=== PATIENT | male | born 1935 | race Caucasian/White ===

== ENCOUNTER 2020-01-30 06:02 | Inpatient (IN) | payer OTHER, MEDICARE ==
--- NOTE | 2020-01-30 07:14 | EDM.PDOC ---
ED HPI GENERAL MEDICAL PROBLEM - General Chief Complaint: General Stated Complaint: FALL Time Seen by Provider: 01/30/20 06:30 Source of Information: Reports: Patient, Family History Limitations: Reports: No Limitations - History of Present Illness INITIAL COMMENTS - FREE TEXT/NARRATIVE: c/o fall pt states he goes to bathroom 10x/night, had gotten up and fell against nightstand breaking it, has pain in his L ribs and lower back, no KITCHEN or neck pain not on anticoagulation except ASA no LOC uses a walker pt fell 4x in past 24 hr, has been falling at least 1x/wk for past yr, in recent months has been unable to help him up, police and EMS provided lift assist earlier this week h/o alc abuse, still drinks 1-2 beers/day when asked why he is falling, he says "I try to stay in practice" unknown when last saw PCP Dr Fountain, neither pt or remember has RN set up meds q2wk, has DANA Davis come in 2x/wk to help with shower pt too abuse in ~2007 and from his and went "to [place] to live with his daughter" pt was too much for his daughter and returned to live with his 2-3y ago, however has been on a decline in past 2m with inc'd falls pt and think that he needs to be in a senior care says he only shuffles had hip surgery 1m ago last labs in [facility] 5y ago, had a GFR 45 and a E coli UTI then left side rib Pain Score (Numeric/FACES): 6 - Related Data Allergies Allergy/AdvReac Type Severity Reaction Status Date / Time lisinopril AdvReac Mild Cough Verified 01/30/20 08:51 Home Meds: Home Meds Benzoyl Peroxide [Acne Treatment] 1 applic TOP DAILY PRN 05/16/14 [History] Cyanocobalamin (Vitamin B-12) [B-12] 1,000 mcg PO DAILY 05/16/14 [History] Omeprazole [Prilosec] 20 mg PO DAILY 05/16/14 [History] clonazePAM [Klonopin] 1 mg PO BID PRN 05/16/14 [History] Hydrochlorothiazide 12.5 mg PO DAILY tablet 09/15/15 [Rx] Aspirin [Halfprin] 81 mg PO DAILY tab.ec 09/21/15 [Rx] Docusate Sodium 100 mg PO DAILY 12/20/15 [History] Acetaminophen [Tylenol Arthritis] 1,500 mg PO BID 01/30/20 [History] Acetaminophen [Tylenol] 325 mg PO BEDTIME 01/30/20 [History] Metoprolol Succinate [Toprol XL] 25 mg PO DAILY 01/30/20 [History] amLODIPine [Norvasc] 5 mg PO BEDTIME 01/30/20 [History] traZODone 150 mg PO BEDTIME 01/30/20 [History] Past Medical History HEENT History: Reports: Hard of Hearing Cardiovascular History: Reports: High Cholesterol, Hypertension Respiratory History: Reports: SOB Gastrointestinal History: Reports: GERD, Hiatal Hernia Other Gastrointestinal History: PT HASN'T HAD SURGERY YET ON HIATIA HERNIA Genitourinary History: Reports: Other (See Below) Other Genitourinary History: HIS STATED A ENLARGED PROSTATE BUT WASN'T AWARE OF CHRONIC RENAL IMPAIRMENT DIAGNOSIS THAT IS STATED ON H AND P Musculoskeletal History: Reports: Arthritis, Back Pain, Chronic, Fracture Other Musculoskeletal History: SCIATICA Neurological History: Reports: TIA, Other (See Below) Other Neuro History: UNSPECIFIED DEMENTIA Psychiatric History: Reports: Addiction, Other (See Below) Other Psychiatric History: ETOH ABUSE Endocrine/Metabolic History: Reports: None Hematologic History: Reports: None Dermatologic History: Reports: Other (See Below) 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 - Infectious Disease History Infectious Disease History: Reports: Measles, Mumps, Shingles - Past Surgical History Musculoskeletal Surgical History: Reports: Other (See Below) Social & Family History - Family History HEENT: Reports: Cataract, Glaucoma, Impaired Vision, Macular Degeneration - Tobacco Use Smoking Status *Q: Former Smoker Used Tobacco, but Quit: Yes Month/Year Tobacco Last Used: 1989 ED ROS GENERAL - Review of Systems Review Of Systems: See Below Constitutional: Reports: Weakness HEENT: Reports: No Symptoms Respiratory: Reports: No Symptoms Cardiovascular: Reports: No Symptoms Endocrine: Reports: No Symptoms GI/Abdominal: Reports: No Symptoms : Reports: No Symptoms Musculoskeletal: Reports: No Symptoms Skin: Reports: No Symptoms Neurological: Reports: Difficulty Walking, Weakness, Gait Disturbance, Other (freq falls) Psychiatric: Reports: Confusion Hematologic/Lymphatic: Reports: No Symptoms Immunologic: Reports: No Symptoms ED EXAM, GENERAL - Physical Exam Exam: See Below General Appearance: Alert, WD/WN, No Apparent Distress, Other (alert, pleasant, good eye contact, NAD, nonill, knows month and year and day (Sun), knows location and name of hosp, knows his full name, provides accurate hx) Eye Exam: Bilateral Eye: PERRL Ears: Normal External Exam, Hearing Grossly Normal Throat/Mouth: Normal Inspection, Normal Lips, Normal Voice, No Airway Compromise Head: Atraumatic, Normocephalic Neck: Normal Inspection, Supple, Non-Tender Respiratory/Chest: No Respiratory Distress, Lungs Clear, Normal Breath Sounds, No Accessory Muscle Use, Chest Non-Tender, Other (clear at bases, good AE, no definite tenderness of ribs (does not wince), does pull himself to sitting unass isted) Cardiovascular: Other (premature beats, 2/6 DEMARIO at LSB, LLE with 3+ edema to knee and 2+ edema to groin, RLE with 2+ edema to knee and 1+ edema to groin, 1+ presacral edema, dull at flanks up 25%) GI/Abdominal: Normal Bowel Sounds, Soft, Non-Tender, Other (inc'd abd girth c/w inc'd adipose tissue) Back Exam: Other (c-spine and t-spine NT, does have mild tender over l-spine, no spasm, no iliac crest tender, no SI joint tender) Extremities: Other (edema LEs as noted above, old midline scar dorsum R foot from prior foot fx, surgically absent L great toe and adjacent toe, inc'd edema on left) Neurological: Alert, CN II-XII Intact, No Motor/Sensory Deficits, Other (cognition intact except date) Psychiatric: Normal Affect, Normal Mood Skin Exam: Warm, Dry, Intact, Normal Color, No Rash Lymphatic: No Adenopathy Course - Vital Signs Last Recorded V/S: Last Vital Signs Temp 36.4 C 01/30/20 06:02 Pulse 65 01/30/20 08:38 Resp 15 01/30/20 08:38 BP 137/66 01/30/20 08:38 Pulse Ox 95 01/30/20 08:38 - Orders/Labs/Meds Orders: Active Orders 24 hr Category Date Time Status Head wo Cont [CT] Stat Exams 01/30/20 07:02 Ordered Lumbar Spine 2 or 3V [CR] Stat Exams 01/30/20 07:02 Ordered Ribs 2V w Chest Lt [CR] Stat Exams 01/30/20 07:02 Taken Labs: Laboratory Tests 01/30/20 01/30/20 01/30/20 Range/Units 07:20 07:20 07:20 WBC 4.8 (4.5-12.0) X10-3/uL RBC 4.19 L (4.30-5.75) x10(6)uL Hgb 13.0 L (13.5-17.8) g/dL Hct 39.6 (30.0-51.3) % MCV 94.6 (80-96) fL MCH 30.9 (27.7-33.6) pg MCHC 32.7 (32.2-35.4) g/dL RDW 12.6 (11.5-15.5) % Plt Count 175 (125-369) X10(3)uL MPV 6.8 L (7.4-10.4) fL Neut % (Auto) 66.1 (46-82) % Lymph % (Auto) 24.0 (13-37) % [place] % (Auto) 6.1 (4-12) % Eos % (Auto) 4 (1.0-5.0) % Baso % (Auto) 0 (0-2) % Neut # (Auto) 3.2 (1.6-8.3) # Lymph # (Auto) 1.1 (0.6-5.0) # [place] # (Auto) 0.3 (0.0-1.3) # Eos # (Auto) 0.2 (0.0-0.8) # Baso # (Auto) 0.0 (0.0-0.2) # D-Dimer, Quantitative 4.97 H (0.0-0.59) mg/LFEU Sodium 136 (135-145) mmol/L Potassium 3.6 (3.5-5.3) mmol/L Chloride 99 L (100-110) mmol/L Carbon Dioxide 32 (21-32) mmol/L BUN 18 (7-18) mg/dL Creatinine 1.7 H (0.70-1.30) mg/dL Est Cr Clr Drug Dosing 39.35 mL/min Estimated GFR (MDRD) 39 L (>60) BUN/Creatinine Ratio 10.6 (9-20) Glucose 97 (80-116) mg/dL Lactic Acid (0.4-2.0) mmol/L Calcium 9.3 (8.6-10.2) mg/dL Total Bilirubin 0.6 (0.1-1.3) mg/dL AST 19 (5-25) IU/L ALT 25 (12-36) U/L Alkaline Phosphatase 40 L (56-112) IU/L Troponin I (4.0-60.3) pg/mL C-Reactive Protein (0.5-0.9) mg/dL NT-Pro-B Natriuret Pep (<=450) pg/mL Total Protein 7.3 (6.0-8.0) g/dL Albumin 4.0 (3.2-4.6) g/dL Globulin 3.3 g/dL Albumin/Globulin Ratio 1.2 TSH, Ultra Sensitive (0.36-3.74) IU/mL Urine Color (YELLOW) Urine Appearance (CLEAR) Urine pH (5.0-6.5) Ur Specific [place] (1.010-1.025) Urine Protein (NEGATIVE) mg/dL Urine Glucose (UA) (NORMAL) mg/dL Urine Ketones (NEGATIVE) mg/dL Urine Occult Blood (NEGATIVE) Urine Nitrite (NEGATIVE) Urine Bilirubin (NEGATIVE) Urine Urobilinogen (NEGATIVE) mg/dL Ur Leukocyte Esterase (NEGATIVE) Urine RBC (0-5) Urine WBC (0-5) Ur Squamous Epith Cells (NS,R,O) Urine Bacteria (NS) 01/30/20 01/30/20 01/30/20 Range/Units 07:20 07: 07:45 WBC (4.5-12.0) X10-3/uL RBC (4.30-5.75) x10(6)uL Hgb (13.5-17.8) g/dL Hct (30.0-51.3) % MCV (80-96) fL MCH (27.7-33.6) pg MCHC (32.2-35.4) g/dL RDW (11.5-15.5) % Plt Count (125-369) X10(3)uL MPV (7.4-10.4) fL Neut % (Auto) (46-82) % Lymph % (Auto) (13-37) % [place] % (Auto) (4-12) % Eos % (Auto) (1.0-5.0) % Baso % (Auto) (0-2) % Neut # (Auto) (1.6-8.3) # Lymph # (Auto) (0.6-5.0) # [place] # (Auto) (0.0-1.3) # Eos # (Auto) (0.0-0.8) # Baso # (Auto) (0.0-0.2) # D-Dimer, Quantitative (0.0-0.59) mg/LFEU Sodium (135-145) mmol/L Potassium (3.5-5.3) mmol/L Chloride (100-110) mmol/L Carbon Dioxide (21-32) mmol/L BUN (7-18) mg/dL Creatinine (0.70-1.30) mg/dL Est Cr Clr Drug Dosing mL/min Estimated GFR (MDRD) (>60) BUN/Creatinine Ratio (9-20) Glucose (80-116) mg/dL Lactic Acid 0.7 (0.4-2.0) mmol/L Calcium (8.6-10.2) mg/dL Total Bilirubin (0.1-1.3) mg/dL AST (5-25) IU/L ALT (12-36) U/L Alkaline Phosphatase (56-112) IU/L Troponin I 8.0 (4.0-60.3) pg/mL C-Reactive Protein < 0.3 L (0.5-0.9) mg/dL NT-Pro-B Natriuret Pep 99 (<=450) pg/mL Total Protein (6.0-8.0) g/dL Albumin (3.2-4.6) g/dL Globulin g/dL Albumin/Globulin Ratio TSH, Ultra Sensitive 1.60 (0.36-3.74) IU/mL Urine Color Yellow (YELLOW) Urine Appearance Clear (CLEAR) Urine pH 7.0 H (5.0-6.5) Ur Specific [place] 1.010 (1.010-1.025) Urine Protein Negative (NEGATIVE) mg/dL Urine Glucose (UA) Normal (NORMAL) mg/dL Urine Ketones Negative (NEGATIVE) mg/dL Urine Occult Blood Negative (NEGATIVE) Urine Nitrite Negative (NEGATIVE) Urine Bilirubin Negative (NEGATIVE) Urine Urobilinogen Normal (NEGATIVE) mg/dL Ur Leukocyte Esterase Negative (NEGATIVE) Urine RBC 0-5 (0-5) Urine WBC 0-5 (0-5) Ur Squamous Epith Cells Occasional (NS,R,O) Urine Bacteria Rare H (NS) Meds: Medications Discontinued Medications Generic Name Dose Route Start Last Admin Trade Name Valeria PRN Reason Stop Dose Admin Acetaminophen 1,000 mg 01/30/20 08:56 01/30/20 09:01 Tylenol Extra Strength PO 01/30/20 08:57 1,000 mg ONETIME ONE Administration Enoxaparin Sodium 120 mg 01/30/20 08:54 Lovenox SUBCUT 01/30/20 08:55 ONETIME ONE - Re-Assessments/Exams Free Text/Narrative Re-Assessment/Exam: 01/30/20 07:21 pt has mild cognitive impairment, 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, dx of dementia is somewhat doubtful given over 10 year h/o cognitive issues and apparent lack of progression 01/30/20 08:[address] with old right MCA infarct, no acute changes prelim ED read on rib XR show acute fx's of left 9 and 10 ribs prelim ED read on CxR shows no infiltrate or effusion prelim ED read on LS spine films with no acute fx, old vertebroplasty with cement at T12 no clinical evidence of HF with trop neg, BNP neg and CxR neg does have CRF with creat 1.5 and GFR 45 from 5y ago, now 1.7 and 39 no evidence of infection (u/a neg, CxR neg, CRP neg, no temp, WBC neg) Free Text/Narrative Re-Assessment/Exam: 01/30/20 09:03 d/w Dr Galvan, hospitalist, who is doing hospital rounds and accepted pt in admission will give Lovenox 1 mg/kg for inc'd d-dimer pending LLE venous u/s in AM, no clinical concerns for PE, unable to do a chest CTA regardless d/t CRF Departure - Departure Time of Disposition: 08:59 Disposition: Admitted As Inpatient 67 Condition: Good Clinical Impression: Ribs, multiple fractures, Contusion of lower back, Gait instability, Elevated d-dimer, Frequent falls, Mild cognitive impairment, Chronic renal failure, Bilateral lower extremity edema, Presacral edema, Left leg swelling, History of alcohol abuse - Discharge Information *PRESCRIPTION DRUG MONITORING PROGRAM REVIEWED*: Not Applicable *COPY OF PRESCRIPTION DRUG MONITORING REPORT IN PATIENT FLACO: Not Applicable Sepsis Event Note (ED) - Evaluation Sepsis Screening Result: No Definite Risk - Focused Exam Vital Signs: Vital Signs Temp Pulse Resp BP Pulse Ox 01/30/20 08:38 65 15 137/66 95 01/30/20 06:02 36.4 C 60 14 137/75 99 - My Orders Last 24 Hours: My Active Orders 01/30/20 07:02 Head wo Cont [CT] Stat Lumbar Spine 2 or 3V [CR] Stat Ribs 2V w Chest Lt [CR] Stat - Assessment/Plan Last 24 Hours: My Active Orders 01/30/20 07:02 Head wo Cont [CT] Stat Lumbar Spine 2 or 3V [CR] Stat Ribs 2V w Chest Lt [CR] Stat
[2020-01-30] MEDS ORDERED: Enoxaparin 120 MG/0.8 ML Syringe SUBCUT ONE (08:54)
[2020-01-30] MEDS ORDERED: Acetaminophen 500 MG Tab PO ONE (08:56)
--- NOTE | 2020-01-30 09:55 | PCM.HP.2 ---
H&P History of Present Illness - General Date of Service: 01/30/20 Admit Problem/Dx: Admission Diagnosis/Problem Admission Diagnosis/Problem Rib injury Source of Information: Patient, Provider History Limitations: Reports: No Limitations - History of Present Illness Initial Comments - Free Text/Narative: Mr. Mcdonnell is an 84-year-old male admitted after an accidental fall this morning. He sustained multiple rib fractures in the left side. He complains of moderate pain on movement. He has had several falls over the last few months. He also has mild cognitive impairment,HLD, hypertension, and a history of alcohol abuse. He denies fever chills or upper respiratory symptoms except mild shortness of breath on ambulation .He also complains of leg Swelling for a few days. left side rib Pain Score (Numeric/FACES): 6 - Related Data Allergies/Adverse Reactions: Allergies Allergy/AdvReac Type Severity Reaction Status Date / Time lisinopril AdvReac Mild Cough Verified 01/30/20 08:51 Home Medications: Home Meds Benzoyl Peroxide [Acne Treatment] 1 applic TOP DAILY PRN 05/16/14 [History] Cyanocobalamin (Vitamin B-12) [B-12] 1,000 mcg PO DAILY 05/16/14 [History] Omeprazole [Prilosec] 20 mg PO DAILY 05/16/14 [History] clonazePAM [Klonopin] 1 mg PO BID PRN 05/16/14 [History] Hydrochlorothiazide 12.5 mg PO DAILY tablet 09/15/15 [Rx] Aspirin [Halfprin] 81 mg PO DAILY tab.ec 09/21/15 [Rx] Docusate Sodium 100 mg PO DAILY 12/20/15 [History] Acetaminophen [Tylenol Arthritis] 1,500 mg PO BID 01/30/20 [History] Acetaminophen [Tylenol] 325 mg PO BEDTIME 01/30/20 [History] Metoprolol Succinate [Toprol XL] 25 mg PO DAILY 01/30/20 [History] amLODIPine [Norvasc] 5 mg PO BEDTIME 01/30/20 [History] traZODone 150 mg PO BEDTIME 01/30/20 [History] Past Medical History HEENT History: Reports: Hard of Hearing Cardiovascular History: Reports: High Cholesterol, Hypertension Respiratory History: Reports: SOB Gastrointestinal History: Reports: GERD, Hiatal Hernia Other Gastrointestinal History: PT HASN'T HAD SURGERY YET ON HIATIA HERNIA Genitourinary History: Reports: Other (See Below) Other Genitourinary History: HIS STATED A ENLARGED PROSTATE BUT WASN'T AWARE OF CHRONIC RENAL IMPAIRMENT DIAGNOSIS THAT IS STATED ON H AND P Musculoskeletal History: Reports: Arthritis, Back Pain, Chronic, Fracture Other Musculoskeletal History: SCIATICA Neurological History: Reports: TIA, Other (See Below) Other Neuro History: UNSPECIFIED DEMENTIA Psychiatric History: Reports: Addiction, Other (See Below) Other Psychiatric History: ETOH ABUSE Endocrine/Metabolic History: Reports: None Hematologic History: Reports: None Dermatologic History: Reports: Other (See Below) 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 Exam - Exam Exam: See Below - Vital Signs Vital Signs: Last Vital Signs Temp 97.5 F 01/30/20 06:02 Pulse 65 01/30/20 08:38 Resp 15 01/30/20 08:38 BP 137/66 01/30/20 08:38 Pulse Ox 95 01/30/20 08:38 Weight: 107.592 kg - Exam General: Mild Distress HEENT: PERRLA Neck: Supple Lungs: Clear to Auscultation, Decreased Breath Sounds, Other (Tender left rib cage) Cardiovascular: Regular Rate, Regular Rhythm GI/Abdominal Exam: Normal Bowel Sounds, Soft Rectal (Males) Exam: Deferred Back Exam: Normal Inspection Extremities: Pedal Edema, Leg Pain, Redness Skin: Warm Neurological: Cranial Nerves Intact Neuro Extensive - Mental Status: Alert, Oriented x3 Neuro Extensive - Motor, Sensory, Reflexes: CN II-XII Intact Psychiatric: Alert, Normal Affect - Patient Data Lab Results Last 24 hrs: Laboratory Results - last 24 hr 01/30/20 01/30/20 01/30/20 Range/Units 07: 07: 07:20 WBC 4.8 (4.5-12.0) X10-3/uL RBC 4.19 L (4.30-5.75) x10(6)uL Hgb 13.0 L (13.5-17.8) g/dL Hct 39.6 (30.0-51.3) % MCV 94.6 (80-96) fL MCH 30.9 (27.7-33.6) pg MCHC 32.7 (32.2-35.4) g/dL RDW 12.6 (11.5-15.5) % Plt Count 175 (125-369) X10(3)uL MPV 6.8 L (7.4-10.4) fL Neut % (Auto) 66.1 (46-82) % Lymph % (Auto) 24.0 (13-37) % [place] % (Auto) 6.1 (4-12) % Eos % (Auto) 4 (1.0-5.0) % Baso % (Auto) 0 (0-2) % Neut # (Auto) 3.2 (1.6-8.3) # Lymph # (Auto) 1.1 (0.6-5.0) # [place] # (Auto) 0.3 (0.0-1.3) # Eos # (Auto) 0.2 (0.0-0.8) # Baso # (Auto) 0.0 (0.0-0.2) # D-Dimer, Quantitative 4.97 H (0.0-0.59) mg/LFEU Sodium 136 (135-145) mmol/L Potassium 3.6 (3.5-5.3) mmol/L Chloride 99 L (100-110) mmol/L Carbon Dioxide 32 (21-32) mmol/L BUN 18 (7-18) mg/dL Creatinine 1.7 H (0.70-1.30) mg/dL Est Cr Clr Drug Dosing 39.35 mL/min Estimated GFR (MDRD) 39 L (>60) BUN/Creatinine Ratio 10.6 (9-20) Glucose 97 (80-116) mg/dL Lactic Acid (0.4-2.0) mmol/L Calcium 9.3 (8.6-10.2) mg/dL Total Bilirubin 0.6 (0.1-1.3) mg/dL AST 19 (5-25) IU/L ALT 25 (12-36) U/L Alkaline Phosphatase 40 L (56-112) IU/L Troponin I (4.0-60.3) pg/mL C-Reactive Protein (0.5-0.9) mg/dL NT-Pro-B Natriuret Pep (<=450) pg/mL Total Protein 7.3 (6.0-8.0) g/dL Albumin 4.0 (3.2-4.6) g/dL Globulin 3.3 g/dL Albumin/Globulin Ratio 1.2 TSH, Ultra Sensitive (0.36-3.74) IU/mL Urine Color (YELLOW) Urine Appearance (CLEAR) Urine pH (5.0-6.5) Ur Specific [place] (1.010-1.025) Urine Protein (NEGATIVE) mg/dL Urine Glucose (UA) (NORMAL) mg/dL Urine Ketones (NEGATIVE) mg/dL Urine Occult Blood (NEGATIVE) Urine Nitrite (NEGATIVE) Urine Bilirubin (NEGATIVE) Urine Urobilinogen (NEGATIVE) mg/dL Ur Leukocyte Esterase (NEGATIVE) Urine RBC (0-5) Urine WBC (0-5) Ur Squamous Epith Cells (NS,R,O) Urine Bacteria (NS) 01/30/20 01/30/20 01/30/20 Range/Units 07: 07: 07:45 WBC (4.5-12.0) X10-3/uL RBC (4.30-5.75) x10(6)uL Hgb (13.5-17.8) g/dL Hct (30.0-51.3) % MCV (80-96) fL MCH (27.7-33.6) pg MCHC (32.2-35.4) g/dL RDW (11.5-15.5) % Plt Count (125-369) X10(3)uL MPV (7.4-10.4) fL Neut % (Auto) (46-82) % Lymph % (Auto) (13-37) % [place] % (Auto) (4-12) % Eos % (Auto) (1.0-5.0) % Baso % (Auto) (0-2) % Neut # (Auto) (1.6-8.3) # Lymph # (Auto) (0.6-5.0) # [place] # (Auto) (0.0-1.3) # Eos # (Auto) (0.0-0.8) # Baso # (Auto) (0.0-0.2) # D-Dimer, Quantitative (0.0-0.59) mg/LFEU Sodium (135-145) mmol/L Potassium (3.5-5.3) mmol/L Chloride (100-110) mmol/L Carbon Dioxide (21-32) mmol/L BUN (7-18) mg/dL Creatinine (0.70-1.30) mg/dL Est Cr Clr Drug Dosing mL/min Estimated GFR (MDRD) (>60) BUN/Creatinine Ratio (9-20) Glucose (80-116) mg/dL Lactic Acid 0.7 (0.4-2.0) mmol/L Calcium (8.6-10.2) mg/dL Total Bilirubin (0.1-1.3) mg/dL AST (5-25) IU/L ALT (12-36) U/L Alkaline Phosphatase (56-112) IU/L Troponin I 8.0 (4.0-60.3) pg/mL C-Reactive Protein < 0.3 L (0.5-0.9) mg/dL NT-Pro-B Natriuret Pep 99 (<=450) pg/mL Total Protein (6.0-8.0) g/dL Albumin (3.2-4.6) g/dL Globulin g/dL Albumin/Globulin Ratio TSH, Ultra Sensitive 1.60 (0.36-3.74) IU/mL Urine Color Yellow (YELLOW) Urine Appearance Clear (CLEAR) Urine pH 7.0 H (5.0-6.5) Ur Specific [place] 1.010 (1.010-1.025) Urine Protein Negative (NEGATIVE) mg/dL Urine Glucose (UA) Normal (NORMAL) mg/dL Urine Ketones Negative (NEGATIVE) mg/dL Urine Occult Blood Negative (NEGATIVE) Urine Nitrite Negative (NEGATIVE) Urine Bilirubin Negative (NEGATIVE) Urine Urobilinogen Normal (NEGATIVE) mg/dL Ur Leukocyte Esterase Negative (NEGATIVE) Urine RBC 0-5 (0-5) Urine WBC 0-5 (0-5) Ur Squamous Epith Cells Occasional (NS,R,O) Urine Bacteria Rare H (NS) Result Diagrams: 01/30/20 07:20 01/30/20 07:20 EKG INTERPRETATION Rhythm: NSR Sepsis Event Note - Evaluation Sepsis Screening Result: No Definite Risk - Focused Exam Vital Signs: Vital Signs Temp Pulse Resp BP Pulse Ox 01/30/20 08:38 65 15 137/66 95 01/30/20 06:02 97.5 F 60 14 137/75 99 Date Exam was Performed: 01/30/20 Time Exam was Performed: 09:57 - Problem List (1) Ribs, multiple fractures SNOMED Code(s): 8116966 ICD Code: S22.49XA - MULTIPLE FRACTURES OF RIBS, UNSP SIDE, INIT FOR CLOS FX Status: Acute Current Visit: Yes Qualifiers: Encounter type: initial encounter (2) Mild cognitive impairment SNOMED Code(s): 624216544 ICD Code: G31.84 - MILD COGNITIVE IMPAIRMENT, SO STATED Status: Acute Current Visit: Yes (3) History of alcohol abuse SNOMED Code(s): 501559392 ICD Code: F10.11 - ALCOHOL ABUSE, IN REMISSION Status: Chronic Current Visit: Yes (4) Left leg swelling SNOMED Code(s): 798668978 ICD Code: M79.89 - OTHER SPECIFIED SOFT TISSUE DISORDERS Status: Acute Current Visit: Yes (5) Falls SNOMED Code(s): 3534115 ICD Code: W19.XXXA - UNSPECIFIED FALL, INITIAL ENCOUNTER Status: Acute Priority: High Current Visit: No (6) Hyperlipidemia SNOMED Code(s): 75780560 ICD Code: E78.5 - HYPERLIPIDEMIA, UNSPECIFIED Status: Chronic Current Visit: No Problem Details: (7) Chronic renal impairment SNOMED Code(s): 511745555 ICD Code: N18.9 - CHRONIC KIDNEY DISEASE, UNSPECIFIED Status: Chronic Current Visit: No (8) HTN, Benign essential hypertension SNOMED Code(s): 9650653 ICD Code: I10 - ESSENTIAL (PRIMARY) HYPERTENSION Status: Chronic Current Visit: No (9) Obesity SNOMED Code(s): 437318487, 535756184 ICD Code: E66.9 - OBESITY, UNSPECIFIED Status: Acute Current Visit: Yes Problem List Initiated/Reviewed/Updated: Yes Orders Last 24hrs: Active Orders 24 hr Category Date Time Status Admission Status [Patient Status] [ADT] Routine ADT 01/30/20 08:51 Active Head wo Cont [CT] Stat Exams 01/30/20 07:02 Taken Lumbar Spine 2 or 3V [CR] Stat Exams 01/30/20 07:02 Taken Ribs 2V w Chest Lt [CR] Stat Exams 01/30/20 07:02 Taken Assessment/Plan Comment:: Admit for pain control. Unable to get a CT chest,will start LMWH as we wait for US tomorrow. PT will be consulted. IS while awake
[2020-01-30] MEDS ORDERED: traMADol 50 MG Tab PO PRN (10:00)
[2020-01-30] MEDS ORDERED: Albuterol/Ipratropium 3.0-0.5 MG/3 ML Neb Soln INH PRN (10:00)
[2020-01-30] MEDS ORDERED: ClonazePAM 1 MG Tab PO PRN (10:03)
[2020-01-30] MEDS: Acetaminophen 325 MG Tab PO SCH ×2 (15:21→20:21)
[2020-01-30] MEDS: Naproxen 500 MG Tab PO PRN (15:22)
[2020-01-30] MEDS: Enoxaparin 100 MG/1 ML Syringe SUBCUT SCH (20:27)
[2020-01-30] MEDS ORDERED: Acetaminophen 650 MG Tab.ER PO SCH (21:00)
[2020-01-30] MEDS ORDERED: traZODone 50 MG Tab PO SCH (21:00)
[2020-01-30] MEDS ORDERED: amLODIPine 5 MG Tab PO SCH (21:00)
[2020-01-31] MEDS: Acetaminophen 325 MG Tab PO SCH ×4 (03:03→19:59)
[2020-01-31] MEDS ORDERED: Pantoprazole 40 MG Tab.CR ONE (04:52)
[2020-01-31] MEDS: Pantoprazole 40 MG Tab.CR PO SCH ×2 (05:10→07:07)
--- NOTE | 2020-01-31 08:28 | PCM.PN ---
- General Info Date of Service: 01/31/20 Subjective Update: Complains of pain rib area.Worse with movements. Functional Status: Reports: Tolerating Diet, Ambulating. Denies: Pain Controlled - Review of Systems HEENT: Reports: No Symptoms Pulmonary: Reports: Pleuritic Chest Pain Cardiovascular: Reports: No Symptoms Gastrointestinal: Reports: No Symptoms Genitourinary: Reports: No Symptoms Musculoskeletal: Reports: No Symptoms - Patient Data Vitals - Most Recent: Last Vital Signs Temp 96.4 F L 01/31/20 03:04 Pulse 52 L 01/31/20 03:04 Resp 18 01/31/20 03:04 BP 157/64 H 01/31/20 03:04 Pulse Ox 95 01/31/20 03:04 Weight - Most Recent: 107.592 kg Lab Results Last 24 Hours: Laboratory Results - last 24 hr 01/31/20 Range/Units 06:30 Sodium 136 (135-145) mmol/L Potassium 3.4 L (3.5-5.3) mmol/L Chloride 100 (100-110) mmol/L Carbon Dioxide 32 (21-32) mmol/L BUN 19 H (7-18) mg/dL Creatinine 1.5 H (0.70-1.30) mg/dL Est Cr Clr Drug Dosing 44.60 mL/min Estimated GFR (MDRD) 45 L (>60) BUN/Creatinine Ratio 12.7 (9-20) Glucose 98 (80-116) mg/dL Calcium 9.0 (8.6-10.2) mg/dL Med Orders - Current: Current Medications Acetaminophen (Tylenol) 650 mg PO Q6H [facility] Last Admin: 01/31/20 03:03 Dose: 650 mg Documented by: Albuterol/Ipratropium (Duoneb 3.0-0.5 Mg/3 Ml) 3 ml INH ONETIME PRN PRN Reason: Shortness Of Breath/wheezing Amlodipine Besylate (Norvasc) 5 mg PO BEDTIME [facility] Last Admin: 01/30/20 20:22 Dose: 5 mg Documented by: Aspirin (Halfprin) 81 mg PO DAILY [facility] Clonazepam (Klonopin) 1 mg PO BID PRN PRN Reason: RESTLESS LEG Last Admin: 01/30/20 21:37 Dose: 1 mg Documented by: Cyanocobalamin (Vitamin B12) 1,000 mcg PO DAILY [facility] Docusate Sodium (Colace) 100 mg PO DAILY [facility] Enoxaparin Sodium (Lovenox) 100 mg SUBCUT Q12H [facility] Last Admin: 01/30/20 20:27 Dose: 100 mg Documented by: Hydrochlorothiazide (Hydrochlorothiazide) 12.5 mg PO DAILY [facility] Naproxen (Naprosyn) 500 mg PO BID PRN PRN Reason: Pain Last Admin: 01/30/20 15:22 Dose: 500 mg Documented by: Oxycodone HCl (Oxycodone) 5 mg PO Q4H PRN PRN Reason: Breakthrough Pain Pantoprazole Sodium (Protonix) 40 mg PO ACBREAKFAST [facility] Last Admin: 01/31/20 07:07 Dose: Not Given Documented by: Trazodone HCl (Trazodone) 150 mg PO BEDTIME [facility] Last Admin: 01/30/20 20:25 Dose: 150 mg Documented by: Discontinued Medications Acetaminophen (Tylenol Extra Strength) 1,000 mg PO ONETIME ONE Stop: 01/30/20 08:57 Last Admin: 01/30/20 09:01 Dose: 1,000 mg Documented by: Acetaminophen (Tylenol Arthritis Pain) 1,300 mg PO BID [facility] Enoxaparin Sodium (Lovenox) 120 mg SUBCUT ONETIME ONE Stop: 01/30/20 08:55 Last Admin: 01/30/20 09:15 Dose: 120 mg Documented by: Non-Formulary Medication (Omeprazole [Prilosec]) 20 mg PO DAILY [facility] Pantoprazole Sodium (Protonix) Confirm Administered Dose 40 mg .ROUTE .STK- MED ONE Stop: 01/31/20 04:53 Last Admin: 01/31/20 05:11 Dose: Not Given Documented by: Tramadol HCl (Ultram) 50 mg PO Q6H PRN PRN Reason: Breakthrough Pain Last Admin: 01/30/20 10:28 Dose: 50 mg Documented by: - Exam General: Alert, Oriented Neck: Supple Lungs: Clear to Auscultation Cardiovascular: Regular Rate Sepsis Event Note - Evaluation Sepsis Screening Result: No Definite Risk - Focused Exam Vital Signs: Vital Signs Temp Pulse Resp BP Pulse Ox 01/31/20 03:04 96.4 F L 52 L 18 157/64 H 95 Date Exam was Performed: 01/31/20 Time Exam was Performed: 08:26 - Problem List & Annotations (1) Ribs, multiple fractures SNOMED Code(s): 5283849 Code(s): S22.49XA - MULTIPLE FRACTURES OF RIBS, UNSP SIDE, INIT FOR CLOS FX Status: Acute Current Visit: Yes Qualifiers: Encounter type: initial encounter (2) Mild cognitive impairment SNOMED Code(s): 577636001 Code(s): G31.84 - MILD COGNITIVE IMPAIRMENT, SO STATED Status: Acute Current Visit: Yes (3) History of alcohol abuse SNOMED Code(s): 579258412 Code(s): F10.11 - ALCOHOL ABUSE, IN REMISSION Status: Chronic Current Visit: Yes (4) Left leg swelling SNOMED Code(s): 812021617 Code(s): M79.89 - OTHER SPECIFIED SOFT TISSUE DISORDERS Status: Acute Current Visit: Yes (5) Falls SNOMED Code(s): 1844135 Code(s): W19.XXXA - UNSPECIFIED FALL, INITIAL ENCOUNTER Status: Acute Priority: High Current Visit: No (6) Hyperlipidemia SNOMED Code(s): 19451492 Code(s): E78.5 - HYPERLIPIDEMIA, UNSPECIFIED Status: Chronic Current Visit: No Annotation/Comment:: (7) Chronic renal impairment SNOMED Code(s): 695654968 Code(s): N18.9 - CHRONIC KIDNEY DISEASE, UNSPECIFIED Status: Chronic Current Visit: No (8) HTN, Benign essential hypertension SNOMED Code(s): 2849163 Code(s): I10 - ESSENTIAL (PRIMARY) HYPERTENSION Status: Chronic Current Visit: No (9) Obesity SNOMED Code(s): 933668375, 777763324 Code(s): E66.9 - OBESITY, UNSPECIFIED Status: Acute Current Visit: Yes - Problem List Review Problem List Initiated/Reviewed/Updated: Yes - My Orders Last 24 Hours: My Active Orders 01/30/20 10:00 Height and Weight [RC] 0600 Up With Assistance [RC] ASDIRECTED Vital Signs [RC] Q8H OT Evaluation and Treatment [CONS] Routine PT Evaluation and Treatment [CONS] Routine Albuterol/Ipratropium [DuoNeb 3.0-0.5 MG/3 ML] 3 ml INH ONETIME PRN Resuscitation Status Routine 01/30/20 10:01 Oxygen Therapy [RC] PRN 01/30/20 10:02 RT Aerosol Therapy [RC] ASDIRECTED 01/30/20 10:03 ClonazePAM [KlonoPIN] 1 mg PO BID PRN 01/30/20 15:00 Acetaminophen [Tylenol] 650 mg PO Q6H Naproxen [Naprosyn] 500 mg PO BID PRN 01/30/20 15:03 IS (RT) [RT Incentive Spirometry] [RC] Q2HR 01/30/20 21:00 Enoxaparin [Lovenox] 100 mg SUBCUT Q12H amLODIPine [Norvasc] 5 mg PO BEDTIME traZODone 150 mg PO BEDTIME 01/31/20 06:30 CBC WITH AUTO DIFF [HEME] AM 01/31/20 07:30 Pantoprazole [ProTONIX] 40 mg PO ACBREAKFAST 01/31/20 08:00 VL Duplex Lwr Ext Veins Ltd Lt [US] Routine 01/31/20 08:21 oxyCODONE 5 mg PO Q4H PRN 01/31/20 09:00 Aspirin [Halfprin] 81 mg PO DAILY Cyanocobalamin (Vitamin B12) [Vitamin B12] 1,000 mcg PO DAILY Docusate Sodium [Colace] 100 mg PO DAILY hydroCHLOROthiazide 12.5 mg PO DAILY - Plan Plan:: Will switch to Oxycodone for pain control. PT to see today. US to r/o DVT.Discu ss placement
[2020-01-31] MEDS ORDERED: Non-Formulary Medication 1 Each (Omeprazole [Prilosec] 20 MG) PO SCH (09:00)
[2020-01-31] MEDS: Hydrochlorothiazide 12.5 MG Cap PO SCH (09:22)
[2020-01-31] MEDS: Enoxaparin 100 MG/1 ML Syringe SUBCUT SCH (09:22)
[2020-01-31] MEDS: Aspirin 81 MG Tab.EC PO SCH (09:22)
[2020-01-31] MEDS: Docusate Sodium 100 MG Cap PO SCH (09:22)
[2020-01-31] MEDS: oxyCODONE 5 MG Tab PO PRN ×2 (09:23→15:14)
[2020-01-31] MEDS: Cyanocobalamin (Vitamin B12) 1,000 MCG Tab PO SCH (09:23)
--- NOTE | 2020-01-31 09:53 | CR ---
INDICATION: Fall. Lumbar pain. LUMBAR SPINE: Three views of the lumbosacral spine were obtained 01/30/20 and revealed decreased disc space and mild to moderate hypertrophic changes at the vertebral bodies of L4-5. Minimal hypertrophic changes are noted at L3 and L5-S1 vertebral bodies anteriorly. Vertebral body heights appear to be fairly well maintained with slight loss of superior endplate volumes - minimal compresses at multiple levels, most likely old. The possibility of minimal osteoporotic compressions cannot be excluded, however. Depending upon clinical necessity, additional examinations could be obtained such as nuclear bone imaging or MRI in that regard. The pedicles appear to be grossly intact. Demineralization is suggested compatible with osteoporosis and/or osteomalacia - correlate clinically. Calcifications are noted in the abdominal aorta and iliac arteries. Sacroiliac joints appear to be grossly intact. Vertebroplasty is noted at the T12 level. IMPRESSION: 1. Minimal endplate compressions throughout the lumbosacral spine, most likely old but cannot exclude minimal acute compressions which could be further evaluated by more advanced imaging as felt to be clinically necessary. 2. Degenerative changes of mild degree for the most part but moderate at L4-5 with hypertrophic lipping and narrowing of the disc space compatible with degenerative disc disease at that level. 3. Demineralization compatible with osteoporosis. 4. ASD. MTDD
--- NOTE | 2020-01-31 10:09 | CR ---
INDICATION: Fall. Pain in left lateral ribs. LEFT RIBS WITH CHEST: AP view of the chest with three views of the left ribs were obtained 01/30/20 and compared with a chest x-ray from 08/17/14. Slightly increased lateral pleural thickening is noted especially on the left which may be on the basis of fibrosis or possibly trauma. No definite contusion, infiltrate, effusion or pneumothorax was identified. The heart appeared normal in size. The aorta is tortuous with calcification in the arch. Overlying EKG leads are noted. There is again noted healed fracture sites at the 7th and 8th left ribs with question of an acute fracture at the 4th left rib as well as the 5th and 6th. The latter fractures are very subtle and could be confirmed by CT or nuclear bone imaging as felt to be clinically necessary, or simple a repeat examination in 2 weeks. No other specific rib abnormalities were identified except for question of demineralization which could be on the basis of osteomalacia or osteoporosis and should be correlated clinically. IMPRESSION: 1. Possible acute fractures of the left ribs laterally 4, 5, and 6. Followup study is recommended for confirmation as felt to be clinically necessary. 2. ASD aorta. 3. Old rib fractures at the 7th and 8th ribs. Report was called to Dr. Galvan at 0955 hours. [facility]
[2020-01-31] MEDS ORDERED: Albuterol/Ipratropium 3.0-0.5 MG/3 ML Neb Soln INH PRN (11:00)
--- NOTE | 2020-01-31 11:41 | US ---
INDICATION: Left leg swelling. Question DVT. DUPLEX ULTRASOUND, LEFT LOWER EXTREMITY VEINS: Utilizing 2-D real time, duplex Doppler spectral analysis and color flow imaging, examination of the left lower extremity veins, including the common femoral vein, proximal greater saphenous vein, proximal deep femoral vein, proximal femoral vein, mid femoral vein, distal femoral vein, popliteal vein, posterior tibial vein, anterior tibial vein, and peroneal vein, revealed no evidence of deep venous thrombosis or obstruction. Compression views showed no abnormal lack of compression to suggest thrombosis. No evidence of incompetence of the valves was identified. IMPRESSION: Duplex ultrasound, left lower extremity veins, shows no evidence of deep venous thrombosis or incompetence. MTDD
[2020-01-31] MEDS ORDERED: amLODIPine 10 MG Tab PO SCH (21:00)
[2020-01-31] MEDS ORDERED: ClonazePAM 1 MG Tab PO SCH (21:00)
[2020-01-31] MEDS ORDERED: traZODone 50 MG Tab PO SCH (21:00)
[2020-02-01] MEDS: Acetaminophen 325 MG Tab PO SCH ×2 (03:30→08:22)
[2020-02-01 04:26] VITALS: BP 155/83; PULSE 72
[2020-02-01] MEDS: Pantoprazole 40 MG Tab.CR PO SCH (06:40)
[2020-02-01] MEDS: Aspirin 81 MG Tab.EC PO SCH (08:20)
[2020-02-01] MEDS: Docusate Sodium 100 MG Cap PO SCH (08:20)
[2020-02-01] MEDS: Hydrochlorothiazide 12.5 MG Cap PO SCH (08:21)
[2020-02-01] MEDS: Naproxen 500 MG Tab PO PRN (08:26)
[2020-02-01] MEDS: Cyanocobalamin (Vitamin B12) 1,000 MCG Tab PO SCH (08:27)
--- NOTE | 2020-02-01 08:58 | DISCH ---
DISCHARGE DATE: 02/01/2020 REASON FOR ADMISSION: 1. Multiple falls. 2. Rib fractures. 3. Obesity. 4. Hypertension. 5. Chronic kidney disease. 6. Alcohol abuse. DISCHARGE DIAGNOSES: 1. Multiple falls. 2. Rib fractures. 3. Obesity. 4. Hypertension. 5. Chronic kidney disease. 6. Alcohol abuse. BRIEF HISTORY AND HOSPITAL COURSE: This is an 84-year-old male who was brought in after a fall at home. He was found to have 2 or 3 fractures on the left with old fractures of the ribs as well. He has been falling several times at home and he known to drink alcohol daily. He also has hypertension and chronic kidney disease, which have been stable. He has mild cognitive impairment, hyperlipidemia, and hypertension as well that are stable. Upon admission, he was treated for pain, started incentive spirometry and he was noted to have a leg swelling of the left, which was negative for deep vein thrombosis. Physical Therapy was consulted, they did not feel that he needed therapy in the hospital, that was yesterday. This morning, I will discharge him home with home health and I will send him home on oxycodone, naproxen, and Tylenol. I stopped Klonopin because of the frequent falls. I recommended that he quit drinking as well. He will see Dr. Rome on the . I spent more than 35 minutes in the discharge of the patient. /[id number] MARTHA/PHILLIP
== END 2020-02-01 11:41 | disposition home health service (06) | DRG 185 ==
LOC: FB.ED 06:02 → FB.MS 08:48
PROVIDERS: ADMIT Family Medicine; ATTEND Family Medicine
DX: S22.42XA Multiple fractures of ribs, left side, initial encounter for closed fracture (principal); W17.89XA Other fall from one level to another, initial encounter; S30.0XXA Contusion of lower back and pelvis, initial encounter; R26.81 Unsteadiness on feet; G31.84 Mild cognitive impairment of uncertain or unknown etiology; R29.6 Repeated falls; R60.9 Edema, unspecified; R79.1 Abnormal coagulation profile; E66.9 Obesity, unspecified; N18.9 Chronic kidney disease, unspecified; F10.10 Alcohol abuse, uncomplicated; I12.9 Hypertensive chronic kidney disease with stage 1 through stage 4 chronic kidney disease, or unspecified chronic kidney disease; E78.5 Hyperlipidemia, unspecified; H91.90 Unspecified hearing loss, unspecified ear; E78.00 Pure hypercholesterolemia, unspecified; K21.9 Gastro-esophageal reflux disease without esophagitis; Y90.9 Presence of alcohol in blood, level not specified; K44.9 Diaphragmatic hernia without obstruction or gangrene; G89.29 Other chronic pain; M19.90 Unspecified osteoarthritis, unspecified site; M54.9 Dorsalgia, unspecified; F03.90 Unspecified dementia, unspecified severity, without behavioral disturbance, psychotic disturbance, mood disturbance, and anxiety; Z91.81 History of falling; Z79.82 Long term (current) use of aspirin; Z79.899 Other long term (current) drug therapy; Z88.8 Allergy status to other drugs, medicaments and biological substances; Z86.73 Personal history of transient ischemic attack (TIA), and cerebral infarction without residual deficits; Z87.891 Personal history of nicotine dependence; Z68.30 Body mass index [BMI] 30.0-30.9, adult
CPT/HCPCS: 36415; 70450; 71101-LT; 72100; 80048; 80053; 81001; 83605; 83880; 84443; 84484; 85025; 85379; 86140; 93971-LT; 94150; 96372; 97161-GP; 99221; 99232; 99239; 99285; 99285-25; A9270-GY; J1650

== ENCOUNTER 2020-05-04 07:18 | Emergency (ER) | payer OTHER, MEDICARE ==
--- NOTE | 2020-05-04 07:45 | EDM.PDOC ---
ED HPI GENERAL MEDICAL PROBLEM - General Chief Complaint: Laceration Stated Complaint: FALL LACERATION EAR Time Seen by Provider: 05/04/20 07:35 - History of Present Illness INITIAL COMMENTS - FREE TEXT/NARRATIVE: c/o ear lac pt here with daughter, lives with , drinks alc daily, falls 3x/wk, has dementia police frequently provide lift assist daughter lives a few doors down, her son lives nearby and can lift him when nee ded pt last in ED 3m ago with several rib fx's on L, now no pain there no c/o pain or injury except L ear pt cooperative, fell asleep during suturing labs at baseline 3m ago, admitted overnight then Lower back & R knee Pain Score (Numeric/FACES): 7 - Related Data Allergies Allergy/AdvReac Type Severity Reaction Status Date / Time lisinopril AdvReac Mild Cough Verified 05/04/20 07:23 Home Meds: Home Meds Benzoyl Peroxide [Acne Treatment] 1 applic TOP DAILY PRN 05/16/14 [History] Cyanocobalamin (Vitamin B-12) [B-12] 1,000 mcg PO DAILY 05/16/14 [History] Omeprazole [Prilosec] 20 mg PO DAILY 05/16/14 [History] Hydrochlorothiazide 12.5 mg PO DAILY tablet 09/15/15 [Rx] Aspirin [Halfprin] 81 mg PO DAILY tab.ec 09/21/15 [Rx] Docusate Sodium 100 mg PO DAILY 12/20/15 [History] Metoprolol Succinate [Toprol XL] 25 mg PO DAILY 01/30/20 [History] Betamethasone/Clotrimazole [Lotrisone] 1 applic TOP DAILY PRN 01/31/20 [History] amLODIPine Besylate [Amlodipine Besylate] 10 mg PO BEDTIME 01/31/20 [History] traZODone HCl [Trazodone HCl] 50 mg PO BEDTIME 01/31/20 [History] Acetaminophen [Tylenol] 650 mg PO Q6H #60 tablet 02/01/20 [Rx] Naproxen [Naprosyn] 500 mg PO BID PRN #10 tablet 02/01/20 [Rx] Past Medical History HEENT History: Reports: Hard of Hearing Cardiovascular History: Reports: High Cholesterol, Hypertension Respiratory History: Reports: SOB Gastrointestinal History: Reports: GERD, Hiatal Hernia Other Gastrointestinal History: PT HASN'T HAD SURGERY YET ON HIATIA HERNIA Genitourinary History: Reports: Prostate Disorder, Renal Disease, Other (See Below) Other Genitourinary History: HIS STATED A ENLARGED PROSTATE BUT WASN'T AWARE OF CHRONIC RENAL IMPAIRMENT DIAGNOSIS THAT IS STATED ON H AND P Musculoskeletal History: Reports: Arthritis, Back Pain, Chronic, Fracture Other Musculoskeletal History: SCIATICA, hx fx ribs, R ankle, ribs, back fx Neurological History: Reports: CVA, TIA, Other (See Below) Other Neuro History: UNSPECIFIED DEMENTIA Psychiatric History: Reports: Addiction, Dementia, Depression, Other (See Below) Other Psychiatric History: ETOH ABUSE Endocrine/Metabolic History: Reports: Obesity/BMI 30+ Hematologic History: Reports: None Dermatologic History: Reports: Other (See Below) 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 - Infectious Disease History Infectious Disease History: Reports: Chicken Pox, Measles, Mumps, Shingles - Past Surgical History HEENT Surgical History: Reports: Adenoidectomy, Cataract Surgery, Tonsillectomy Other HEENT Surgeries/Procedures: bilat cataract surgery GI Surgical History: Reports: Appendectomy, Colonoscopy Musculoskeletal Surgical History: Reports: Other (See Below) Other Musculoskeletal Surgeries/Procedures:: had cementing to lower back for back fx Social & Family History - Family History Family Medical History: Noncontributory HEENT: Reports: Cataract, Glaucoma, Impaired Vision, Macular Degeneration - Tobacco Use Tobacco Use Status *Q: Former Tobacco User Used Tobacco, but Quit: Yes Month/Year Tobacco Last Used: jul - Caffeine Use Caffeine Use: Reports: Coffee, Soda - Alcohol Use Days Per Week of Alcohol Use: 7 Number of Drinks Per Day: 2 Total Drinks Per Week: 14 - Recreational Drug Use Recreational Drug Use: No ED ROS GENERAL - Review of Systems Review Of Systems: See Below Constitutional: Reports: No Symptoms HEENT: Reports: No Symptoms Respiratory: Reports: No Symptoms Cardiovascular: Reports: No Symptoms Endocrine: Reports: No Symptoms GI/Abdominal: Reports: No Symptoms : Reports: No Symptoms Musculoskeletal: Reports: No Symptoms Skin: Reports: Wound Neurological: Reports: No Symptoms Psychiatric: Reports: No Symptoms Hematologic/Lymphatic: Reports: No Symptoms Immunologic: Reports: No Symptoms ED EXAM, SKIN/RASH Exam: See Below General Appearance: Alert, WD/WN, No Apparent Distress Eye Exam: Bilateral Eye: EOMI Ears: Other (L ear with 2 cm lac on superior aspect pinna on front and another 2 cm posteriorly, total 4 cm, cleaned with Surgi-Cleans by RN, cleaned x 8 with gauze and NS by myself after 2% lido without with #30 needle, tolerated quite well, 4-0 Ethilon x 8, good apposition margins, clean edges, should heal with minimal scar) Head: Atraumatic, Normocephalic, Other (except L ear) Neck: Normal Inspection, Supple, Non-Tender, Full Range of Motion. No: Lymphadenopathy (R), Lymphadenopathy (L) Respiratory/Chest: No Respiratory Distress, Lungs Clear, Chest Non-Tender Cardiovascular: Regular Rate, Rhythm, Other (2/6 DEMARIO at LSB, trace pretib edema) GI/Abdominal: Soft, Non-Tender, No Distention Back Exam: Normal Inspection, Full Range of Motion. No: CVA Tenderness (R), CVA Tenderness (L) Extremities: Normal Inspection, Normal Range of Motion, Non-Tender Neurological: Alert, CN II-XII Intact, No Motor/Sensory Deficits Psychiatric: Normal Affect, Normal Mood Skin: Warm, Dry Lymphatic: No Adenopathy Course - Vital Signs Last Recorded V/S: Last Vital Signs Temp 36.8 C 05/04/20 07:18 Pulse 73 05/04/20 07:18 Resp 18 05/04/20 07:18 BP 118/81 05/04/20 07:18 Pulse Ox 97 05/04/20 07:18 - Re-Assessments/Exams Free Text/Narrative Re-Assessment/Exam: 05/04/20 08:28 uncomplicated lac pt lives at home altho altho with mobility issues d/t DJD family frequently cooks food and provides care to both there are barriers apparently to going in [place], as per discussion between daughter and RN, pt can be difficult at times, possibly related to alcohol use Departure - Departure Time of Disposition: 08:22 Disposition: Home, Self-Care 01 Condition: Good Clinical Impression: Laceration of left ear, Fall from standing - Discharge Information *PRESCRIPTION DRUG MONITORING PROGRAM REVIEWED*: Not Applicable *COPY OF PRESCRIPTION DRUG MONITORING REPORT IN PATIENT FLACO: Not Applicable Instructions: Laceration Care, Adult Referrals: Carroll Rome MD [Primary Care Provider] - Forms: ED Department Discharge Additional Instructions: Keep clean and dry. See a physician the same day for any increase in redness, swelling, pain, warmth, drainage or fever. See your physician in 5 days to remove sutures. Sepsis Event Note (ED) - Evaluation Sepsis Screening Result: No Definite Risk - Focused Exam Vital Signs: Vital Signs Temp Pulse Resp BP Pulse Ox 05/04/20 07:18 36.8 C 73 18 118/81 97
[2020-05-04 09:18] VITALS: BP 130/82; PULSE 59
== END 2020-05-04 08:40 | disposition home or self-care (01) ==
LOC: FB.ED 07:18
DX: S01.312A Laceration without foreign body of left ear, initial encounter (principal); I10 Essential (primary) hypertension; K21.9 Gastro-esophageal reflux disease without esophagitis; M19.90 Unspecified osteoarthritis, unspecified site; F03.90 Unspecified dementia, unspecified severity, without behavioral disturbance, psychotic disturbance, mood disturbance, and anxiety; F32.9 Major depressive disorder, single episode, unspecified; E66.9 Obesity, unspecified; Z86.73 Personal history of transient ischemic attack (TIA), and cerebral infarction without residual deficits; Z68.29 Body mass index [BMI] 29.0-29.9, adult; Z88.8 Allergy status to other drugs, medicaments and biological substances; Z79.82 Long term (current) use of aspirin; Z79.899 Other long term (current) drug therapy; Z87.891 Personal history of nicotine dependence; W18.30XA Fall on same level, unspecified, initial encounter
CPT/HCPCS: 12013; 99283-25